=== PATIENT | female | born 1965 | race Caucasian/White ===

== ENCOUNTER 2022-03-24 18:57 | Emergency (ER) | payer OTHER, SELFPAY ==
--- NOTE | ~2022-03-24 | US_ITS ---
EXAMINATION: US venous doppler [facility] DATE: 03/24/2022 20:17 INDICATION: Lower limb pain and swelling TECHNIQUE: Grayscale ultrasound images without and with compression and Doppler ultrasound images of the left lower extremity veins were obtained. COMPARISON: None. FINDINGS: There is peripheral nonocclusive thrombus in the distal left femoral vein, the popliteal vein and occ lusive appearing thrombus in the left posterior tibial and peroneal veins. The proximal to mid left f emoral vein is patent. The visualized portions of left common femoral vein, profunda (deep) femoral v ein, gastrocnemius vein and greater saphenous vein outflow are patent. IMPRESSION: 1. Deep venous thrombosis, occlusive in the left peroneal and posterior tibial veins and nonocclusiv e in the left popliteal and distal femoral veins. Reviewed, dictated and finalized at location A. TER MONITOR IMPRESSION: 1. Deep venous thrombosis, occlusive in the left peroneal and posterior tibial veins and nonocclusive in the left popliteal and distal femoral veins.
[2022-03-24 19:15] VITALS: BP 139/103; PULSE 113; RESP 18; TEMP 36.8; O2SAT 98
--- NOTE | 2022-03-24 19:19 | PC.NURSE ---
yuli livingston us lle r/o dvt
[2022-03-24 21:13] LABS: Basophils Absolute Auto 0.1 K/mm3 (0.0-0.1); Basophils Percent Auto 0.5 % (0.2-1.2); Eosinophils Absolute Auto 0.3 K/mm3 (0-0.3); Eosinophils Percent Auto 2.3 % (0-4.4); Hematocrit 42.2 % (37.0-47.0); Immature Granulocyte Absolute 0.07 K/mm3 (0.00-0.031); Immature Granulocyte Percent A 0.6 % (0-0.5); Lymphocytes Absolute Auto 1.77 K/mm3 (0.9-3.2); Mean Corpuscular HGB Conc 33.2 g/dl (32-36); Mean Corpuscular Hemoglobin 29.7 pg (26-34); Mean Corpuscular Volume 89.4 fl (80-100); Mean Platelet Volume 9.2 fl (7.4-10.4); Monocytes Absolute Auto 0.6 K/mm3 (0.1-0.6); Monocytes Percent Auto 5.7 % (2.6-8.5); Neutrophils Absolute Auto 8.3 K/mm3 (1.3-6.7); Neutrophils Percent Auto 74.9 % (45.5-73.1); Platelet Count Result 255 k/mm3 (150-375); Red Blood Count 4.72 M/mm3 (4.2-5.4); Red Cell Distribution Width 14.1 % (11.5-14.5); White Blood Count 11.1 K/mm3 (4.5-10.0)
[2022-03-24 21:28] LABS: INR 1.1; Prothrombin Time 13.4 Seconds (11.1-14.7)
[2022-03-24 21:29] LABS: Anion Gap 5 mmol/L (8-16); Blood Urea Nitrogen 14 mg/dL (7-17); Calcium 9.3 mg/dL (8.4-10.2); Carbon Dioxide 28 mmol/L (22-30); Chloride 103 mmol/L (98-107); Estimated CRCL calculation 58 ml/min; Estimated Glomerular Filt Rate 57; Glucose 121 mg/dL (65-110); Partial Thromboplastin Time 27.1 SECONDS (22.3-36.8); Potassium 4.4 mmol/L (3.4-5.0); Sodium 136 mmol/L (137-145)
--- NOTE | 2022-03-24 21:56 | PC.NURSE ---
Patient walked out of department due to wait time.
== END 2022-03-24 21:56 | disposition left against medical advice (07) ==
PROVIDERS: Emergency Provider Emergency Medicine
DX: M79.662 Pain in left lower leg (principal)
CPT/HCPCS: 36415; 80048; 85025; 85610; 85730; 93971; 99199